=== PATIENT | female | born 1960 | race Two or more races ===

== ENCOUNTER 2016-05-31 16:49 | Emergency (ER) | payer OTHER ==
[2016-05-31] MEDS ORDERED: KETOROLAC TROMETHAMINE 30 MG/ML 1 ML VIAL ONE (17:18)
[2016-05-31 17:33] LABS: BASO # 0.1 K/mm3 (0.0-0.2); BASO % 0.7 % (0.2-1.0); EOS # 0.1 (0.0-0.5); HEMATOCRIT 39.6 % (37.0-47.0); HEMOGLOBIN 12.2 gm/l (12.0-16.0); IMM NEUT% 0.1 % (0-1); LYMPH # 2.4 (1.0-4.8); MEAN CELL VOLUME 84.3 fl (81.0-99.0); MEAN CORPUSCULAR HGB CONC 30.8 g/dl (33.0-37.0); MEAN PLATELET VOLUME 9.6 fl (7.4-10.4); MONO # 0.4 (0.0-0.8); MONO % 5.3 % (4-12); NEUT % 56.9 % (43-75); PLATELET COUNT 282 K/mm3 (130-400); RED CELL DISTRIBUTION WIDTH 16.4 % (11.5-14.5)
[2016-05-31 17:39] LABS: URINE BILIRUBIN NEGATIVE (NEGATIVE); URINE BLOOD 3+ (NEGATIVE); URINE GLUCOSE (UA) NEGATIVE (NEGATIVE); URINE LEUKOCYTE ESTERASE TRACE (NEGATIVE); URINE NITRITE NEGATIVE (NEGATIVE); URINE PROTEIN TRACE (NEGATIVE); URINE UROBILINOGEN 1 mg/dL (0-1 mg/dl)
[2016-05-31 17:54] LABS: ALB/GLOB RATIO 1.3 (>1.0); CALCIUM 9.3 mg/dL (8.6-10.3)
[2016-05-31 17:56] LABS: URINE APPEARANCE SL CLOUDY; URINE COLOR DARK YELLOW
[2016-05-31 17:58] LABS: URINE BACTERIA RARE
[2016-05-31] MEDS ORDERED: SODIUM CHLORIDE 0.9% 1,000 ML ONE (18:06)
[2016-05-31] MEDS ORDERED: CYCLOBENZAPRINE HCL 10 MG TABLET ONE (18:06)
== END 2016-05-31 19:38 | disposition home or self-care (01) ==
LOC: ED 16:49
DX: M54.9 Dorsalgia, unspecified (principal); R31.9 Hematuria, unspecified; K21.9 Gastro-esophageal reflux disease without esophagitis; I10 Essential (primary) hypertension; Z85.41 Personal history of malignant neoplasm of cervix uteri
CPT/HCPCS: 85025; 80053; 81001; 99283 ×2; 96374; J1885; J7030